=== PATIENT | male | born 1955 | race Caucasian/White ===

== ENCOUNTER 2017-12-13 16:03 | Inpatient (IN) | payer OTHER ==
[~2017-12-13] VITALS: Ht 175.3 cm; Wt 121.7 kg
[~2017-12-13 16:03] MED LIST: ALLOPURINOL; AMBIEN10 MG PO; ATIVAN0.5 MG PO; ATORVASTATIN CA10 MG PO; B COMPLETE1 EACH PO; BENAZEPRIL HCL10 MG PO; COLCHICINE; COLCRYS0.6 MG PO; DOXYCYCLINE HY100 MG PO; FLOMAX0.4 MG PO; GLUCOPHAGE500 MG PO; GLUCOTROL XL2.5 MG PO; GLUCOTROL XL5 MG PO; LOW DOSE ASPIRI81 M1 PO; METFORMIN HCL1000 MG PO; METFORMIN HCL500 MG PO; NEURONTIN300 MG PO; OXAYDO5 MG PO; PLAVIX75 MG PO; PRILOSEC20 MG PO; ULTRAM50 MG PO; VITAMIN C1000 MG PO; VITAMIN D1000 INTUN PO; ZYLOPRIM300 MG PO
[2017-12-13 17:00] LABS: HEMATOCRIT 48.1 % (38.0-50.0); HEMOGLOBIN 16.5 G/DL (12.5-16.6); MCH 30.2 PG (29.0-34.0); MCHC 34.3 G/DL (30.0-36.0); MCV 87.9 FL (86-99); NRBC (%) 0.3 /100 WBC (0-0); PLATELET COUNT 146 K/uL (156-360); RBC DIS.WIDTH-CV 18.5 % (11.8-14.6); RBC DIS.WIDTH-SD 52.9 % (39-53); RED BLOOD COUNT 5.47 M/uL (4.00-5.50); WHITE BLOOD COUNT 17.2 K/uL (4.1-10.2)
[2017-12-13 18:11] LABS: CHLORIDE 105 mEq/L (99-109); POTASSIUM 5.3 mEq/L (3.7-5.4); SODIUM 137 mEq/L (136-147)
[2017-12-13 18:13] LABS: GLUCOSE 236 mg/dL (70-99)
[2017-12-13 18:17] LABS: CREATININE 3.4 mg/dL (0.6-1.3); GFR ESTIMATE (CALCULATED) 19 mL/min/ (58.99-99999)
[2017-12-13 18:18] LABS: UREA NITROGEN (BUN) 90 mg/dL (9-23)
[2017-12-13 18:19] LABS: TOTAL CK 2131 IU/L (1-294)
[2017-12-13 18:23] LABS: CREATINE KINASE 2131 IU/L (1-294)
[2017-12-13 18:27] LABS: CK-MB 19.4 ng/mL (0.0-4.9); CKMB RELATIVE INDEX 0.9 (0.0-3.9)
[2017-12-13 18:42] LABS: APPEARANCE CLOUDY ((CLEAR)); BILIRUBIN NEGATIVE; BLOOD LARGE; COLOR AMBER ((YELLOW)); GLUCOSE (STRIP) 50; KETONES NEGATIVE; LEUKOCYTES NEGATIVE; NITRITE NEGATIVE; PROTEIN (STRIP) >=500; SPECIFIC GRAVITY 1.018 (1.000-1.030); UROBILINOGEN 0.2 MG/DL (0.2-1.0)
[2017-12-13 19:05] LABS: AMORPHOUS URATES CRYSTALS 4+; BACTERIA RARE /HPF; EPITHELIAL CELLS NONE SEEN /HPF; MUCUS NONE SEEN /LPF; UCUL ADDED? NO; WHITE BLOOD CELLS 0-5 /HPF (0-5)
[2017-12-13 23:24] VITALS: BP 137/91
[2017-12-13 23:30] VITALS: BP 129/80
[2017-12-14] VITALS (21 sets, daily range): BP systolic 89–135; BP diastolic 64–102
[2017-12-14 00:38] LABS: INTER. NORMALIZED RATIO 1.4
[2017-12-14 00:40] LABS: PTT 21.9 SEC (25-37)
[2017-12-14 00:53] LABS: CHLORIDE 108 mEq/L (99-109); POTASSIUM 5.1 mEq/L (3.7-5.4); SODIUM 142 mEq/L (136-147)
[2017-12-14 00:55] LABS: GLUCOSE 153 mg/dL (70-99)
[2017-12-14 00:59] LABS: GFR ESTIMATE (CALCULATED) 25 mL/min/ (58.99-99999)
[2017-12-14 01:00] LABS: CREATININE 2.7 mg/dL (0.6-1.3); UREA NITROGEN (BUN) 87 mg/dL (9-23)
[2017-12-14 02:16] LABS: BASE EXCESS -5.7 mEq/L (-3 to +3); BICARBONATE 18.5 mEq/L (22-26); CARBOXY HGB 2.3 % (0-5); COMMENTS - BLOOD GASES C+A+; FI02 21 %; METHEMOGLOBIN 1.8 % (0-1.5); O2 FLOW 0 L/MIN; PCO2 32 mm Hg (35-45); PO2 78 mm Hg (80-100); SITE RR; pH 7.37 (7.35-7.45)
[2017-12-14 04:48] LABS: ALBUMIN 3.4 g/dL (3.2-4.8); CHLORIDE 109 mEq/L (99-109); POTASSIUM 5.5 mEq/L (3.7-5.4); SODIUM 140 mEq/L (136-147)
[2017-12-14 04:49] LABS: MAGNESIUM 1.9 mg/dL (1.3-2.7)
[2017-12-14 04:50] LABS: GLUCOSE 206 mg/dL (70-99); TOTAL PROTEIN 6.6 g/dL (6.4-8.3)
[2017-12-14 04:52] LABS: TOTAL BILIRUBIN 1.5 mg/dL (0.0-1.0)
[2017-12-14 04:54] LABS: ALKALINE PHOSPHATASE 70 IU/L (3-129); CREATININE 2.4 mg/dL (0.6-1.3); GFR ESTIMATE (CALCULATED) 29 mL/min/ (58.99-99999); HEMATOCRIT 41.5 % (38.0-50.0); HEMOGLOBIN 14.5 G/DL (12.5-16.6); MCH 30.1 PG (29.0-34.0); MCHC 34.9 G/DL (30.0-36.0); MCV 86.3 FL (86-99); NRBC (%) 0.1 /100 WBC (0-0); PHOSPHORUS 4.7 mg/dL (2.5-4.9); PLATELET COUNT 118 K/uL (156-360); RBC DIS.WIDTH-SD 49.2 % (39-53); RED BLOOD COUNT 4.81 M/uL (4.00-5.50); WHITE BLOOD COUNT 20.4 K/uL (4.1-10.2)
[2017-12-14 04:55] LABS: UREA NITROGEN (BUN) 87 mg/dL (9-23)
[2017-12-14 04:57] LABS: ALT (GPT) 636 IU/L (3-49)
[2017-12-14 05:07] LABS: AST (GOT) 1131 IU/L (2-34); CREATINE KINASE 2469 IU/L (1-294)
[2017-12-14] MEDS ORDERED: ACID CONTROL150 MG PO (10:25)
[2017-12-14] MEDS ORDERED: FLUOXETINE HCL10 MG PO (10:25)
[2017-12-14] MEDS ORDERED: GLUCOPHAGE500 MG PO (10:26)
[2017-12-14] MEDS ORDERED: LOTENSIN20 MG PO (10:26)
[2017-12-14] MEDS ORDERED: NEURONTIN300 MG PO (10:26)
[2017-12-14] MEDS ORDERED: AMBIEN10 MG PO (10:27)
[2017-12-14 13:16] LABS: BASOPHIL (%) 0.1 % (0-1); EOSINOPHIL (%) 0.2 % (0-5); HEMATOCRIT 38.2 % (38.0-50.0); HEMOGLOBIN 13.2 G/DL (12.5-16.6); IMMATURE GRANULOCYTE (%) 0.7 % (0.0-0.7); LYMPHOCYTE (%) 8.9 % (15-42); LYMPHOCYTE COUNT 1.2 K/uL (1.0-2.8); MCH 30.2 PG (29.0-34.0); MCHC 34.6 G/DL (30.0-36.0); MCV 87.4 FL (86-99); MONOCYTE (%) 5.6 % (3-12); MONOCYTE COUNT 0.8 K/uL (0-0.8); NEUTROPHIL (%) 84.5 % (45-76); NEUTROPHIL COUNT 11.4 K/uL (1.8-6.4); NRBC (%) 0.4 /100 WBC (0-0); PLATELET COUNT 104 K/uL (156-360); RBC DIS.WIDTH-CV 16.1 % (11.8-14.6); RBC DIS.WIDTH-SD 50.7 % (39-53); RED BLOOD COUNT 4.37 M/uL (4.00-5.50); WHITE BLOOD COUNT 13.5 K/uL (4.1-10.2)
[2017-12-14 13:54] LABS: ALBUMIN 2.9 G/DL (3.2-4.8); ALKALINE PHOSPHATASE 46 IU/L (3-129); ALT (GPT) 496 IU/L (3-49); AST (GOT) 683 IU/L (2-34); CHLORIDE 110 MEQ/L (99-109); CREATININE 1.8 MG/DL (0.6-1.3); GFR ESTIMATE (CALCULATED) 41 mL/min/ (58.99-99999); GLUCOSE 229 mg/dL (70-99); HIGH-SENS C-REACTIVE PROTEIN > 8.00 MG/DL (0.02-0.20); PHOSPHORUS 3.6 mg/dL (2.5-4.9); POTASSIUM 5.4 MEQ/L (3.7-5.4); SODIUM 136 MEQ/L (136-147); UREA NITROGEN (BUN) 79 mg/dL (9-23)
[2017-12-14 19:39] LABS: CHLORIDE 109 MEQ/L (99-109); CREATININE 1.7 MG/DL (0.6-1.3); GFR ESTIMATE (CALCULATED) 43 mL/min/ (58.99-99999); GLUCOSE 295 mg/dL (70-99); MAGNESIUM 1.9 mg/dl (1.3-2.7); PHOSPHORUS 3.5 mg/dL (2.5-4.9); POTASSIUM 4.9 MEQ/L (3.7-5.4); SODIUM 136 MEQ/L (136-147); UREA NITROGEN (BUN) 75 mg/dL (9-23)
[2017-12-15] VITALS (17 sets, daily range): BP systolic 96–139; BP diastolic 64–92
[2017-12-15 06:03] LABS: HEMATOCRIT 34.9 % (38.0-50.0); MCH 29.7 PG (29.0-34.0); MCHC 34.4 G/DL (30.0-36.0); MCV 86.4 FL (86-99); NRBC (%) 0.9 /100 WBC (0-0); RBC DIS.WIDTH-SD 49.3 % (39-53); RED BLOOD COUNT 4.04 M/uL (4.00-5.50); WHITE BLOOD COUNT 10.1 K/uL (4.1-10.2)
[2017-12-15 06:07] LABS: ALBUMIN 2.5 G/DL (3.2-4.8); ALKALINE PHOSPHATASE 50 IU/L (3-129); ALT (GPT) 353 IU/L (3-49); CHLORIDE 110 MEQ/L (99-109); CREATININE 1.4 MG/DL (0.6-1.3); GFR ESTIMATE (CALCULATED) 54 mL/min/ (58.99-99999); GLUCOSE 277 mg/dL (70-99); MAGNESIUM 1.8 mg/dl (1.3-2.7); PHOSPHORUS 3.1 mg/dL (2.5-4.9); POTASSIUM 4.9 MEQ/L (3.7-5.4); SODIUM 139 MEQ/L (136-147); TOTAL BILIRUBIN 0.9 MG/DL (0.0-1.0); TOTAL PROTEIN 5.3 G/DL (6.4-8.3); UREA NITROGEN (BUN) 64 mg/dL (9-23)
[2017-12-15 06:08] LABS: AST (GOT) 311 IU/L (2-34)
[2017-12-15 07:06] LABS: PLAT.SUFFICIENCY DECREASED
[2017-12-15 09:09] LABS: PLATELET COUNT 44 K/uL (156-360)
[2017-12-15 09:18] LABS: ANISOCYTOSIS 1+; MACROCYTES 1+
[2017-12-15] MEDS ORDERED: ATORVASTATIN CA10 MG PO (11:59)
[2017-12-15] MEDS ORDERED: ALLOPURINOL300 MG PO (11:59)
[2017-12-15] MEDS ORDERED: PLAVIX75 MG PO (12:00)
[2017-12-15] MEDS ORDERED: HYDROCHLOROTHIA25 MG PO (12:02)
[2017-12-15] MEDS ORDERED: LANTUS 3 M100 UNITS1 SC (12:03)
[2017-12-15] MEDS ORDERED: TAMSULOSIN HCL0.4 MG PO (12:04)
[2017-12-15] MEDS ORDERED: VITAMIN D31000 UNI2 PO (12:05)
[2017-12-15 13:09] LABS: HEMOGLOBIN A1c (GLYCOHEMOGLOB) 8.8 % (Below 5.7)
[2017-12-16 00:36] VITALS: BP 154/79
[2017-12-16 07:00] LABS: BASOPHIL (%) 0.1 % (0-1); EOSINOPHIL (%) 1.9 % (0-5); EOSINOPHIL COUNT 0.1 K/uL (0-0.3); HEMATOCRIT 33.8 % (38.0-50.0); HEMOGLOBIN 11.1 G/DL (12.5-16.6); IMMATURE GRANULOCYTE (%) 1.1 % (0.0-0.7); LYMPHOCYTE (%) 17.4 % (15-42); LYMPHOCYTE COUNT 1.3 K/uL (1.0-2.8); MCH 28.9 PG (29.0-34.0); MCHC 32.8 G/DL (30.0-36.0); MONOCYTE (%) 8.4 % (3-12); MONOCYTE COUNT 0.6 K/uL (0-0.8); NEUTROPHIL (%) 71.1 % (45-76); NEUTROPHIL COUNT 5.3 K/uL (1.8-6.4); NRBC (%) 0.3 /100 WBC (0-0); RBC DIS.WIDTH-CV 15.9 % (11.8-14.6); RBC DIS.WIDTH-SD 49.8 % (39-53); RED BLOOD COUNT 3.84 M/uL (4.00-5.50); WHITE BLOOD COUNT 7.5 K/uL (4.1-10.2)
[2017-12-16 07:29] LABS: PLATELET COUNT 63 K/uL (156-360)
[2017-12-16 07:30] VITALS: BP 117/75
[2017-12-16 07:31] LABS: ALBUMIN 2.8 G/DL (3.2-4.8); ALKALINE PHOSPHATASE 53 IU/L (3-129); ALT (GPT) 239 IU/L (3-49); AST (GOT) 131 IU/L (2-34); CHLORIDE 101 MEQ/L (99-109); CREATINE KINASE 499 IU/L (1-294); GFR ESTIMATE (CALCULATED) > 59 mL/min/ (58.99-99999); GLUCOSE 220 mg/dL (70-99); MAGNESIUM 1.5 mg/dl (1.3-2.7); PHOSPHORUS 2.3 mg/dL (2.5-4.9); POTASSIUM 3.4 MEQ/L (3.7-5.4); SODIUM 138 MEQ/L (136-147); TOTAL BILIRUBIN 1.1 MG/DL (0.0-1.0); TOTAL PROTEIN 5.7 G/DL (6.4-8.3); UREA NITROGEN (BUN) 37 mg/dL (9-23)
[2017-12-16 13:44] LABS: Heparin Induced Plt Ab Negative (Negative)
[2017-12-16 15:50] LABS: UFH SRA Result Negative (Negative)
[2017-12-16 15:56] LABS: HEMATOCRIT 30.9 % (38.0-50.0); HEMOGLOBIN 10.4 G/DL (12.5-16.6); MCH 29.1 PG (29.0-34.0); MCHC 33.7 G/DL (30.0-36.0); MCV 86.6 FL (86-99); PLATELET COUNT 57 K/uL (156-360); RBC DIS.WIDTH-CV 15.6 % (11.8-14.6); RBC DIS.WIDTH-SD 48.9 % (39-53); RED BLOOD COUNT 3.57 M/uL (4.00-5.50); WHITE BLOOD COUNT 7.1 K/uL (4.1-10.2)
[2017-12-16 23:24] VITALS: BP 110/59
[2017-12-17 05:53] LABS: BASOPHIL (%) 0.2 % (0-1); EOSINOPHIL (%) 3.7 % (0-5); EOSINOPHIL COUNT 0.2 K/uL (0-0.3); HEMATOCRIT 33.6 % (38.0-50.0); HEMOGLOBIN 11.3 G/DL (12.5-16.6); IMMATURE GRANULOCYTE (%) 1.5 % (0.0-0.7); LYMPHOCYTE (%) 16.9 % (15-42); LYMPHOCYTE COUNT 0.9 K/uL (1.0-2.8); MCH 29.5 PG (29.0-34.0); MCHC 33.6 G/DL (30.0-36.0); MCV 87.7 FL (86-99); MONOCYTE (%) 8.5 % (3-12); MONOCYTE COUNT 0.5 K/uL (0-0.8); NEUTROPHIL (%) 69.2 % (45-76); NEUTROPHIL COUNT 3.7 K/uL (1.8-6.4); PLATELET COUNT 59 K/uL (156-360); RBC DIS.WIDTH-CV 15.5 % (11.8-14.6); RBC DIS.WIDTH-SD 48.9 % (39-53); RED BLOOD COUNT 3.83 M/uL (4.00-5.50); WHITE BLOOD COUNT 5.4 K/uL (4.1-10.2)
[2017-12-17 06:25] LABS: ALBUMIN 2.8 G/DL (3.2-4.8); ALKALINE PHOSPHATASE 54 IU/L (3-129); ALT (GPT) 161 IU/L (3-49); CHLORIDE 100 MEQ/L (99-109); CREATININE 0.8 MG/DL (0.6-1.3); GFR ESTIMATE (CALCULATED) > 59 mL/min/ (58.99-99999); MAGNESIUM 1.7 mg/dl (1.3-2.7); PHOSPHORUS 2.7 mg/dL (2.5-4.9); SODIUM 137 MEQ/L (136-147); TOTAL PROTEIN 5.6 G/DL (6.4-8.3); UREA NITROGEN (BUN) 25 mg/dL (9-23)
[2017-12-17 06:26] LABS: AST (GOT) 72 IU/L (2-34); GLUCOSE 115 mg/dL (70-99)
[2017-12-17 06:52] VITALS: BP 111/63
[2017-12-17 08:25] LABS: CREATINE KINASE 382 IU/L (1-294)
[2017-12-17 15:15] VITALS: BP 116/61
[2017-12-18 00:35] VITALS: BP 122/87
[2017-12-18 06:24] LABS: BASOPHIL (%) 0.3 % (0-1); EOSINOPHIL (%) 3.2 % (0-5); EOSINOPHIL COUNT 0.2 K/uL (0-0.3); HEMATOCRIT 34.7 % (38.0-50.0); HEMOGLOBIN 11.8 G/DL (12.5-16.6); IMMATURE GRANULOCYTE (%) 1.2 % (0.0-0.7); LYMPHOCYTE COUNT 0.9 K/uL (1.0-2.8); MCV 85.3 FL (86-99); MONOCYTE (%) 8.6 % (3-12); MONOCYTE COUNT 0.6 K/uL (0-0.8); NEUTROPHIL (%) 74.7 % (45-76); NEUTROPHIL COUNT 5.5 K/uL (1.8-6.4); RBC DIS.WIDTH-CV 15.1 % (11.8-14.6); RBC DIS.WIDTH-SD 46.4 % (39-53); RED BLOOD COUNT 4.07 M/uL (4.00-5.50); WHITE BLOOD COUNT 7.4 K/uL (4.1-10.2)
[2017-12-18 06:42] LABS: PLATELET COUNT 79 K/uL (156-360)
[2017-12-18 06:45] LABS: ALBUMIN 2.9 G/DL (3.2-4.8); ALKALINE PHOSPHATASE 56 IU/L (3-129); ALT (GPT) 116 IU/L (3-49); AST (GOT) 45 IU/L (2-34); CHLORIDE 101 MEQ/L (99-109); CREATININE 0.8 MG/DL (0.6-1.3); GFR ESTIMATE (CALCULATED) > 59 mL/min/ (58.99-99999); GLUCOSE 133 mg/dL (70-99); MAGNESIUM 1.5 mg/dl (1.3-2.7); PHOSPHORUS 2.2 mg/dL (2.5-4.9); POTASSIUM 2.6 MEQ/L (3.7-5.4); SODIUM 134 MEQ/L (136-147); TOTAL PROTEIN 5.7 G/DL (6.4-8.3); UREA NITROGEN (BUN) 20 mg/dL (9-23)
[2017-12-18 07:55] VITALS: BP 123/77
[2017-12-18 11:11] LABS: C DIFF TOXIN NEGATIVE (NEGATIVE)
[2017-12-18 11:45] VITALS: BP 138/84
[2017-12-18 12:29] LABS: ANTI-HEPATITIS A VIRUS (IGM) Nonreactive; HEPATITIS B SURFACE ANTIGEN Nonreactive
[2017-12-18 12:31] LABS: ANTI-HEPATITIS B CORE (IGM) Nonreactive
[2017-12-18 13:09] LABS: HEPATITIS C ANTIBODY REACTIVE
[2017-12-18 15:20] VITALS: BP 122/67
[2017-12-18 15:23] LABS: CHLORIDE 100 MEQ/L (99-109); CREATININE 0.8 MG/DL (0.6-1.3); GFR ESTIMATE (CALCULATED) > 59 mL/min/ (58.99-99999); GLUCOSE 144 mg/dL (70-99); POTASSIUM 2.9 MEQ/L (3.7-5.4); SODIUM 134 MEQ/L (136-147); UREA NITROGEN (BUN) 19 mg/dL (9-23)
[2017-12-18 23:30] VITALS: BP 126/67
[2017-12-19 06:05] LABS: BASOPHIL (%) 0.3 % (0-1); EOSINOPHIL (%) 2.5 % (0-5); EOSINOPHIL COUNT 0.2 K/uL (0-0.3); HEMATOCRIT 35.9 % (38.0-50.0); HEMOGLOBIN 12.3 G/DL (12.5-16.6); IMMATURE GRANULOCYTE (%) 1.2 % (0.0-0.7); LYMPHOCYTE (%) 11.6 % (15-42); LYMPHOCYTE COUNT 1.1 K/uL (1.0-2.8); MCH 29.1 PG (29.0-34.0); MCHC 34.3 G/DL (30.0-36.0); MCV 84.9 FL (86-99); MONOCYTE (%) 8.5 % (3-12); MONOCYTE COUNT 0.8 K/uL (0-0.8); NEUTROPHIL (%) 75.9 % (45-76); NEUTROPHIL COUNT 7.4 K/uL (1.8-6.4); PLATELET COUNT 100 K/uL (156-360); RBC DIS.WIDTH-CV 15.5 % (11.8-14.6); RBC DIS.WIDTH-SD 47.4 % (39-53); RED BLOOD COUNT 4.23 M/uL (4.00-5.50); WHITE BLOOD COUNT 9.7 K/uL (4.1-10.2)
[2017-12-19 07:07] LABS: ALBUMIN 2.7 G/DL (3.2-4.8); ALKALINE PHOSPHATASE 64 IU/L (3-129); ALT (GPT) 84 IU/L (3-49); AST (GOT) 34 IU/L (2-34); CHLORIDE 104 MEQ/L (99-109); CREATININE 0.9 MG/DL (0.6-1.3); GFR ESTIMATE (CALCULATED) > 59 mL/min/ (58.99-99999); GLUCOSE 120 mg/dL (70-99); MAGNESIUM 1.7 mg/dl (1.3-2.7); PHOSPHORUS 2.3 mg/dL (2.5-4.9); POTASSIUM 2.9 MEQ/L (3.7-5.4); SODIUM 135 MEQ/L (136-147); TOTAL PROTEIN 5.8 G/DL (6.4-8.3); UREA NITROGEN (BUN) 18 mg/dL (9-23)
[2017-12-19 08:05] VITALS: BP 122/50
[2017-12-19 11:45] VITALS: BP 167/94
[2017-12-19 22:58] VITALS: BP 115/78
[2017-12-20 05:35] LABS: BASOPHIL (%) 0.4 % (0-1); EOSINOPHIL (%) 2.7 % (0-5); EOSINOPHIL COUNT 0.2 K/uL (0-0.3); HEMATOCRIT 31.4 % (38.0-50.0); HEMOGLOBIN 10.5 G/DL (12.5-16.6); IMMATURE GRANULOCYTE (%) 0.9 % (0.0-0.7); LYMPHOCYTE (%) 13.7 % (15-42); LYMPHOCYTE COUNT 1.2 K/uL (1.0-2.8); MCH 28.5 PG (29.0-34.0); MCHC 33.4 G/DL (30.0-36.0); MCV 85.1 FL (86-99); MONOCYTE (%) 8.5 % (3-12); MONOCYTE COUNT 0.7 K/uL (0-0.8); NEUTROPHIL (%) 73.8 % (45-76); NEUTROPHIL COUNT 6.3 K/uL (1.8-6.4); PLATELET COUNT 103 K/uL (156-360); RBC DIS.WIDTH-CV 15.6 % (11.8-14.6); RBC DIS.WIDTH-SD 47.6 % (39-53); RED BLOOD COUNT 3.69 M/uL (4.00-5.50); WHITE BLOOD COUNT 8.5 K/uL (4.1-10.2)
[2017-12-20 06:04] LABS: ALBUMIN 2.5 G/DL (3.2-4.8); ALKALINE PHOSPHATASE 49 IU/L (3-129); ALT (GPT) 58 IU/L (3-49); AST (GOT) 23 IU/L (2-34); CHLORIDE 104 MEQ/L (99-109); CREATININE 0.8 MG/DL (0.6-1.3); GFR ESTIMATE (CALCULATED) > 59 mL/min/ (58.99-99999); GLUCOSE 139 mg/dL (70-99); PHOSPHORUS 2.2 mg/dL (2.5-4.9); POTASSIUM 3.5 MEQ/L (3.7-5.4); SODIUM 135 MEQ/L (136-147); TOTAL BILIRUBIN 0.9 MG/DL (0.0-1.0); TOTAL PROTEIN 5.2 G/DL (6.4-8.3); UREA NITROGEN (BUN) 15 mg/dL (9-23)
[2017-12-20 06:06] LABS: MAGNESIUM 1.4 mg/dl (1.3-2.7)
[2017-12-20 15:45] VITALS: BP 115/73
[2017-12-20 22:41] VITALS: BP 135/75
[2017-12-21 07:11] LABS: BASOPHIL (%) 0.3 % (0-1); EOSINOPHIL (%) 2.2 % (0-5); EOSINOPHIL COUNT 0.2 K/uL (0-0.3); HEMATOCRIT 32.5 % (38.0-50.0); HEMOGLOBIN 10.9 G/DL (12.5-16.6); IMMATURE GRANULOCYTE (%) 1.8 % (0.0-0.7); LYMPHOCYTE (%) 13.1 % (15-42); LYMPHOCYTE COUNT 1.2 K/uL (1.0-2.8); MCH 28.6 PG (29.0-34.0); MCHC 33.5 G/DL (30.0-36.0); MCV 85.3 FL (86-99); MONOCYTE (%) 7.6 % (3-12); MONOCYTE COUNT 0.7 K/uL (0-0.8); NEUTROPHIL COUNT 6.8 K/uL (1.8-6.4); RBC DIS.WIDTH-CV 15.4 % (11.8-14.6); RBC DIS.WIDTH-SD 47.9 % (39-53); RED BLOOD COUNT 3.81 M/uL (4.00-5.50); WHITE BLOOD COUNT 9.1 K/uL (4.1-10.2)
[2017-12-21 07:30] VITALS: BP 122/73
[2017-12-21 07:30] LABS: ALBUMIN 2.6 G/DL (3.2-4.8); ALKALINE PHOSPHATASE 54 IU/L (3-129); ALT (GPT) 46 IU/L (3-49); AST (GOT) 23 IU/L (2-34); CHLORIDE 105 MEQ/L (99-109); CREATININE 0.8 MG/DL (0.6-1.3); GFR ESTIMATE (CALCULATED) > 59 mL/min/ (58.99-99999); GLUCOSE 135 mg/dL (70-99); MAGNESIUM 1.2 mg/dl (1.3-2.7); PHOSPHORUS 2.5 mg/dL (2.5-4.9); POTASSIUM 3.3 MEQ/L (3.7-5.4); SODIUM 133 MEQ/L (136-147); TOTAL BILIRUBIN 0.9 MG/DL (0.0-1.0); TOTAL PROTEIN 5.1 G/DL (6.4-8.3); UREA NITROGEN (BUN) 11 mg/dL (9-23)
[2017-12-21 07:42] LABS: ANISOCYTOSIS 1+; PLAT.SUFFICIENCY DECREASED; PLATELET CLUMPS PRESENT - PLATELET COUNTS APPEARS DECREASED
[2017-12-21 07:43] LABS: PLATELET COUNT UNABLE TO REPORT K/uL (156-360)
[2017-12-21 15:52] VITALS: BP 127/83
[2017-12-21 23:14] VITALS: BP 105/57
[2017-12-22 01:25] VITALS: BP 119/68
[2017-12-22 06:05] LABS: BASOPHIL (%) 0.2 % (0-1); EOSINOPHIL (%) 1.6 % (0-5); EOSINOPHIL COUNT 0.1 K/uL (0-0.3); HEMATOCRIT 30.8 % (38.0-50.0); HEMOGLOBIN 10.7 G/DL (12.5-16.6); IMMATURE GRANULOCYTE (%) 1.6 % (0.0-0.7); LYMPHOCYTE COUNT 1.4 K/uL (1.0-2.8); MCH 29.5 PG (29.0-34.0); MCHC 34.7 G/DL (30.0-36.0); MCV 84.8 FL (86-99); MONOCYTE (%) 7.5 % (3-12); MONOCYTE COUNT 0.7 K/uL (0-0.8); NEUTROPHIL (%) 73.1 % (45-76); NEUTROPHIL COUNT 6.4 K/uL (1.8-6.4); PLATELET COUNT 142 K/uL (156-360); RBC DIS.WIDTH-CV 15.5 % (11.8-14.6); RBC DIS.WIDTH-SD 47.8 % (39-53); RED BLOOD COUNT 3.63 M/uL (4.00-5.50); WHITE BLOOD COUNT 8.8 K/uL (4.1-10.2)
[2017-12-22 06:24] LABS: ALBUMIN 2.6 G/DL (3.2-4.8); ALKALINE PHOSPHATASE 59 IU/L (3-129); ALT (GPT) 38 IU/L (3-49); AST (GOT) 19 IU/L (2-34); CHLORIDE 104 MEQ/L (99-109); CREATININE 0.9 MG/DL (0.6-1.3); GFR ESTIMATE (CALCULATED) > 59 mL/min/ (58.99-99999); GLUCOSE 190 mg/dL (70-99); MAGNESIUM 1.1 mg/dl (1.3-2.7); PHOSPHORUS 2.7 mg/dL (2.5-4.9); SODIUM 136 MEQ/L (136-147); TOTAL BILIRUBIN 0.9 MG/DL (0.0-1.0); TOTAL PROTEIN 5.6 G/DL (6.4-8.3); UREA NITROGEN (BUN) 8 mg/dL (9-23)
[2017-12-22 07:16] VITALS: BP 160/82
[2017-12-22] MEDS ORDERED: HYDROCHLOROTHIA25 MG PO (09:39)
[2017-12-22] MEDS ORDERED: LEVEMIR100 UNIT/2 SC (09:42)
[2017-12-22 13:38] LABS: POTASSIUM 3.3 MEQ/L (3.7-5.4)
[2017-12-22 13:40] LABS: MAGNESIUM 1.7 mg/dl (1.3-2.7)
[2017-12-22 17:10] VITALS: BP 109/67
[2017-12-22 20:00] VITALS: BP 141/72
== END 2017-12-22 21:01 | DRG 871 ==
LOC: EME 16:03 → EDOF 21:51 → 5EAST 21:51 → 4WEST 21:51 → ENRESERV 21:52 → 4WEST 23:20 → ENRESERV 12-15 15:21 → 5EAST 12-15 16:58 → ENPENDDIS 12-22 → EDPENDDIS 12-22 → 5EAST 12-22 21:01
PROVIDERS: Emergency Medicine; Hospitalist; Internal Medicine; Internal Medicine Critical Care Medicine; Surgery
PROC: 06HY33Z Insertion of Infusion Device into Lower Vein, Percutaneous Approach (ICD-10-PCS; principal; 2017-12-13)
DX: A41.9 Sepsis, unspecified organism (principal); R65.21 Severe sepsis with septic shock; N17.9 Acute kidney failure, unspecified; M62.82 Rhabdomyolysis; K56.0 Paralytic ileus; E87.2 Acidosis; D69.59 Other secondary thrombocytopenia; R79.89 Other specified abnormal findings of blood chemistry; M54.2 Cervicalgia; M54.6 Pain in thoracic spine; I69.398 Other sequelae of cerebral infarction; R43.9 Unspecified disturbances of smell and taste; E87.6 Hypokalemia; I10 Essential (primary) hypertension; E78.5 Hyperlipidemia, unspecified; K21.9 Gastro-esophageal reflux disease without esophagitis; K74.60 Unspecified cirrhosis of liver; B18.2 Chronic viral hepatitis C; E11.9 Type 2 diabetes mellitus without complications; M10.9 Gout, unspecified; F32.9 Major depressive disorder, single episode, unspecified; H54.8 Legal blindness, as defined in USA; W18.2XXA Fall in (into) shower or empty bathtub, initial encounter; Y93.E1 Activity, personal bathing and showering; Y92.002 Bathroom of unspecified non-institutional (private) residence as the place of occurrence of the external cause; E66.9 Obesity, unspecified; Z68.39 Body mass index [BMI] 39.0-39.9, adult; Z79.4 Long term (current) use of insulin; Z79.02 Long term (current) use of antithrombotics/antiplatelets; Z86.79 Personal history of other diseases of the circulatory system; Z87.891 Personal history of nicotine dependence; Z83.3 Family history of diabetes mellitus; Z82.49 Family history of ischemic heart disease and other diseases of the circulatory system
CPT/HCPCS: 36600; 70450; 71045; 72070; 72100; 72125; 74018; 74176; 80048; 80048 91; 80053; 80074; 80202; 80306 90; 81003; 82140; 82330; 82550; 82553; 82803; 82948; 83036; 83605; 83735; 84100; 84132 91; 84145 90; 85025; 85027; 85384; 85610; 85730; 86022 90; 86141; 87040; 87493; 87641; 87801; 93005; 97530 GO; 97530 GP; 99281; 99285; C1751; C9113; J0610; J1644; J1815; J2543; J2765; J3370; J3475; J3480; J7030; J7050; J7070